=== PATIENT | female | born 1935 | race African-American/Black ===

== ENCOUNTER 2017-10-21 18:38 | Inpatient (IN) | payer MEDICAID, MEDICARE ==
[~2017-10-21] VITALS: Ht 157.5 cm; Wt 65.3 kg
[2017-10-21] MEDS ORDERED: Sodium Chloride 500ML 500 ML IV ONE (18:43)
[2017-10-21 18:52] VITALS: BP 183/69
[2017-10-21] MEDS ORDERED: UNOBMED (19:11)
--- NOTE | 2017-10-21 19:37 | Emergency Room Report ---
History of Present Illness General Chief Complaint: Altered Mental Status Source: Patient, Family Member, EMS Present Illness HPI Patient was brought in by paramedics for change in mental status Patient was found to be hypoglycemic After given dextrose her symptoms did improve Family reports that this happened several days ago as well Patient herself does have some underlying mild confusion family provide further input No reports of vomiting or diarrhea no reports of chest pain recently Family is unclear of why the patient's sugar has been going low Patient is on insulin for her diabetes Allergies: Coded Allergies: No Known Allergies (Unverified , 10/21/17) Patient History Limited by: medical condition Past Medical History: see triage record Pertinent Family History: unable to obtain Reviewed Nursing Documentation: PMH: Agreed, PSxH: Agreed Nursing Documentation-PMH Hx Hypertension: Yes Hx Diabetes: Yes Review of Systems All Other Systems: negative except mentioned in HPI Physical Exam Vital Signs Date Time Temp Pulse Resp B/P (MAP) Pulse Ox O2 Delivery O2 Flow Rate FiO2 10/21/17 18:28 97.0 64 16 200/91 98 Room Air Sp02 EP Interpretation: reviewed, normal General Appearance: well appearing, no apparent distress Head: normocephalic, atraumatic Eyes: bilateral eye PERRL, bilateral eye EOMI ENT: hearing grossly normal, normal pharynx, TMs + canals normal, uvula midline Neck: full range of motion, supple, no meningismus, no bony tend Respiratory: lungs clear, normal breath sounds, no rhonchi, no respiratory distress, no retraction, no accessory muscle use Cardiovascular #1: normal peripheral pulses, regular rate, rhythm, no edema, no gallop, no JVD, no murmur Gastrointestinal: normal bowel sounds, non tender, soft, no mass, no organomegaly, non-distended, no guarding, no hernia, no pulsatile mass, no rebound Genitourinary: no CVA tenderness Musculoskeletal: normal inspection, back normal Neurologic: responsive, 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, motor strength/tone normal, sensory intact, other - GCS 14 with mild confusion Psychiatric: mood/affect normal Skin: normal color, no rash, warm/dry, palpation normal Lymphatic: normal inspection, no adenopathy Medical Decision Making Diagnostic Impression: Primary Impression: Altered mental status Additional Impressions: Acute encephalopathy Hypoglycemia Elevated troponin ER Course Multiple differentials considered Patient's family also presents reports that the patient has had several episodes of hypoglycemia They report no change in medications The son is asking for help stating that he needs refills of Medications Patient is also hypertensive Initially was mildly nauseated denies any chest pain or shortness of breath denies any back or flank pain Patient's mentation has significantly improved after receiving dextrose Blood work Shows elevated portal and troponin, EKG does not show any changes patient amended for further inpatient care Labs Test 10/21/17 19:15 10/21/17 20:15 10/22/17 05:35 10/23/17 06:30 White Blood Count 11.6 K/UL (4.8-10.8) 10.9 K/UL (4.8-10.8) Red Blood Count 4.42 M/UL (4.20-5.40) 4.18 M/UL (4.20-5.40) Hemoglobin 12.2 G/DL (12.0-16.0) 11.3 G/DL (12.0-16.0) Hematocrit 38.5 % (37.0-47.0) 36.2 % (37.0-47.0) Mean Corpuscular Volume 87 FL (80-99) 87 FL (80-99) Mean Corpuscular Hemoglobin 27.5 PG (27.0-31.0) 27.0 PG (27.0-31.0) Mean Corpuscular Hemoglobin Concent 31.6 G/DL (32.0-36.0) 31.2 G/DL (32.0-36.0) Red Cell Distribution Width 13.7 % (11.6-14.8) 13.7 % (11.6-14.8) Platelet Count 264 K/UL (150-450) 251 K/UL (150-450) Mean Platelet Volume 8.1 FL (6.5-10.1) 8.4 FL (6.5-10.1) Neutrophils (%) (Auto) 81.8 % (45.0-75.0) 58.4 % (45.0-75.0) Lymphocytes (%) (Auto) 11.7 % (20.0-45.0) 30.8 % (20.0-45.0) Monocytes (%) (Auto) 4.8 % (1.0-10.0) 8.0 % (1.0-10.0) Eosinophils (%) (Auto) 0.6 % (0.0-3.0) 1.7 % (0.0-3.0) Basophils (%) (Auto) 1.0 % (0.0-2.0) 1.1 % (0.0-2.0) Sodium Level 132 MMOL/L (136-145) Potassium Level 3.6 MMOL/L (3.5-5.1) Chloride Level 96 MMOL/L (98-107) Carbon Dioxide Level 24 MMOL/L (21-32) Anion Gap 12 mmol/L (5-15) Blood Urea Nitrogen 20 mg/dL (7-18) Creatinine 0.8 MG/DL (0.55-1.30) Estimat Glomerular Filtration Rate mL/min (>60) Glucose Level 111 MG/DL (74-106) Calcium Level 9.0 MG/DL (8.5-10.1) Total Bilirubin 0.4 MG/DL (0.2-1.0) Aspartate Amino Transf (AST/SGOT) 14 U/L (15-37) Alanine Aminotransferase (ALT/SGPT) 12 U/L (12-78) Alkaline Phosphatase 66 U/L (46-116) Total Creatine Kinase 83 U/L (26-308) Creatine Kinase MB 1.3 NG/ML (0.0-3.6) Creatine Kinase MB Relative Index 1.5 Troponin I 0.070 ng/mL (0.000-0.056) 0.102 ng/mL (0.000-0.056) Total Protein 8.5 G/DL (6.4-8.2) Albumin 4.0 G/DL (3.4-5.0) Globulin 4.5 g/dL Albumin/Globulin Ratio 0.9 (1.0-2.7) Lipase 112 U/L (73-393) Urine Color Pale yellow Urine Appearance Clear Urine pH 7 (4.5-8.0) Urine Specific [place] 1.005 (1.005-1.035) Urine Protein 3+ (NEGATIVE) Urine Glucose (UA) 2+ (NEGATIVE) Urine Ketones Negative (NEGATIVE) Urine Occult Blood Negative (NEGATIVE) Urine Nitrite Negative (NEGATIVE) Urine Bilirubin Negative (NEGATIVE) Urine Urobilinogen Normal MG/DL (0.0-1.0) Urine Leukocyte Esterase Negative (NEGATIVE) Urine RBC 0-2 /HPF (0 - 2) Urine WBC 2-4 /HPF (0 - 2) Urine Squamous Epithelial Cells Few /LPF (NONE/OCC) Urine Amorphous Sediment Few /LPF (NONE) Urine Bacteria Few /HPF (NONE) Prothrombin Time 10.2 SEC (9.30-11.50) Prothromb Time International Ratio 1.0 (0.9-1.1) Activated Partial Thromboplast Time 26 SEC (23-33) C-Reactive Protein, Quantitative < 0.4 mg/dL (0.00-0.90) Triglycerides Level 146 MG/DL (30-150) Cholesterol Level 227 MG/DL (< 200) LDL Cholesterol 160 mg/dL (<100) HDL Cholesterol 39 MG/DL (40-60) Cholesterol/HDL Ratio 5.8 (3.3-4.4) Thyroid Stimulating Hormone (TSH) 1.507 uiU/mL (0.358-3.740) EKG Diagnostic Results Rate: normal Rhythm: NSR ST Segments: no acute changes Rhythm Strip Diag. Results EP Interpretation: yes Rate: 88 Rhythm: NSR, no PVC's, no ectopy Chest X-Ray Diagnostic Results Chest X-Ray Diagnostic Results : Chest X-Ray Ordered: Yes # of Views/Limited/Complete: 1 View Indication: Chest Pain EP Interpretation: Yes Interpretation: no consolidation, no effusion, no pneumothorax, other - Borderline cardiomegaly, mild congestion Impression: No acute disease Electronically Signed by: Frances Quintero DO Last Vital Signs Date Time Temp Pulse Resp B/P (MAP) Pulse Ox O2 Delivery O2 Flow Rate FiO2 10/21/17 18:52 97.0 16 183/69 98 Room Air 10/21/17 18:28 64 Status: improved Disposition: ADMITTED INPATIENT Condition: Serious FRANCES QUINTERO D.O. Oct 21, 2017 19:36
[2017-10-21 19:47] LABS: EOSINOPHILS % (AUTO) 0.6 % (0.0-3.0); HEMATOCRIT 38.5 % (37.0-47.0); HEMOGLOBIN 12.2 G/DL (12.0-16.0); LYMPHOCYTES % (AUTO) 11.7 % (20.0-45.0); MEAN CORPUSCULAR VOLUME 87 FL (80-99); MONOCYTES % (AUTO) 4.8 % (1.0-10.0); NEUTROPHILS % (AUTO) 81.8 % (45.0-75.0); PLATELET COUNT 264 K/UL (150-450); RED BLOOD COUNT 4.42 M/UL (4.20-5.40); RED CELL DISTRIBUTION WIDTH 13.7 % (11.6-14.8); WHITE BLOOD COUNT 11.6 K/UL (4.8-10.8)
[2017-10-21 19:53] LABS: ANION GAP 12 mmol/L (5-15); BLOOD UREA NITROGEN 20 mg/dL (7-18); CARBON DIOXIDE 24 MMOL/L (21-32); CHLORIDE 96 MMOL/L (98-107); CREATININE 0.8 MG/DL (0.55-1.30); POTASSIUM 3.6 MMOL/L (3.5-5.1); SODIUM 132 MMOL/L (136-145)
[2017-10-21 20:07] LABS: ALANINE AMINOTRANSFERASE 12 U/L (12-78); ALBUMIN/GLOBULIN RATIO 0.9 (1.0-2.7); ALKALINE PHOSPHATASE 66 U/L (46-116); ASPARTATE AMINO TRANSFERASE 14 U/L (15-37); BILIRUBIN,TOTAL 0.4 MG/DL (0.2-1.0); CKMB 1.3 NG/ML (0.0-3.6); CREATINE KINASE 83 U/L (26-308)
[2017-10-21] MEDS ORDERED: LANTUS SOL100 UNIT/1 SUBQ (20:10)
[2017-10-21] MEDS ORDERED: FERROUS SULFAT325 MG ORAL (20:10)
[2017-10-21] MEDS ORDERED: HUMALOG100 UNIT/1 SUBQ (20:10)
[2017-10-21] MEDS ORDERED: TRAZODONE HCL50 MG ORAL (20:10)
[2017-10-21] MEDS ORDERED: HYDRALAZINE HC100 MG ORAL (20:10)
[2017-10-21] MEDS ORDERED: DONEPEZIL HCL10 MG ORAL (20:10)
[2017-10-21] MEDS ORDERED: ACETAMINOPHEN325 M1 ORAL (20:10)
[2017-10-21] MEDS ORDERED: NAMENDA10 MG ORAL (20:10)
[2017-10-21] MEDS ORDERED: METOPROLOL TART50 M1 ORAL (20:10)
[2017-10-21 20:54] LABS: APPEARANCE,URINE CLEAR; BILIRUBIN, URINE NEGATIVE (NEGATIVE); COLOR,URINE PALE YELLOW; GLUCOSE, URINE (UA) 2+ (NEGATIVE); KETONES,URINE NEGATIVE (NEGATIVE); LEUKOCYTE ESTERASE ,URINE NEGATIVE (NEGATIVE); NITRITE,URINE NEGATIVE (NEGATIVE); PH,URINE 7 (4.5-8.0); PROTEIN,URINE 3+ (NEGATIVE); UROBILINOGEN,URINE NORMAL MG/DL (0.0-1.0)
[2017-10-21] MEDS ORDERED: Albuterol/Ipratropium 3ml neb HHN PRN (21:45)
[2017-10-21] MEDS ORDERED: Nitroglycerin Subl 0.4mg tab SL PRN (21:45)
[2017-10-21] MEDS ORDERED: dilTIAZem HCl 25mg/5ml Inj IV PRN (21:45)
[2017-10-21] MEDS ORDERED: Miralax 17gm pkt ORAL PRN (21:45)
[2017-10-21] MEDS ORDERED: Ketorolac 30mg Inj IV PRN (21:45)
[2017-10-21] MEDS ORDERED: Morphine Sulfate 2mg/ml Inj IVP PRN (21:45)
[2017-10-21] MEDS ORDERED: Enalaprilat 2.5mg/2ml Inj IV PRN (21:45)
[2017-10-21 22:00] VITALS: BP 160/83
[2017-10-21 22:20] VITALS: BP 147/85
[2017-10-21 22:58] VITALS: BP 160/83
[2017-10-21] MEDS: Heparin 5000 units/ml inj SUBQ SCH (23:05)
[2017-10-22] VITALS: BP 128/65
[2017-10-22 04:00] VITALS: BP 128/54
[2017-10-22] MEDS: NovoLOG Insulin Flexpen SUBQ SCH ×4 (06:30→20:46)
[2017-10-22] MEDS: Heparin 5000 units/ml inj SUBQ SCH ×3 (07:01→21:21)
[2017-10-22 07:53] LABS: BASOPHILS % (AUTO) 1.1 % (0.0-2.0); EOSINOPHILS % (AUTO) 1.7 % (0.0-3.0); HEMATOCRIT 36.2 % (37.0-47.0); HEMOGLOBIN 11.3 G/DL (12.0-16.0); LYMPHOCYTES % (AUTO) 30.8 % (20.0-45.0); MEAN CORPUSCULAR VOLUME 87 FL (80-99); NEUTROPHILS % (AUTO) 58.4 % (45.0-75.0); PLATELET COUNT 251 K/UL (150-450); RED BLOOD COUNT 4.18 M/UL (4.20-5.40); RED CELL DISTRIBUTION WIDTH 13.7 % (11.6-14.8); WHITE BLOOD COUNT 10.9 K/UL (4.8-10.8)
[2017-10-22 08:00] VITALS: BP 137/70
[2017-10-22 08:45] LABS: CHOLESTEROL 227 MG/DL (< 200); HDL CHOLESTEROL 39 MG/DL (40-60); TRIGLYCERIDES 146 MG/DL (30-150)
[2017-10-22] MEDS: Metoprolol Tartrate 50mg tab ORAL SCH ×2 (09:03→20:44)
[2017-10-22] MEDS: Aspirin Baby 81mg ORAL SCH (09:03)
--- NOTE | 2017-10-22 09:41 | Cardiac Electrophysiology PN ---
Subjective Subjective [id number]. Dictated and DW RN Rising troponin Accelerated HT Uncontrolled DM S/P RBKA and L AKA Objective Last 24 Hour Vital Signs Date Time Temp Pulse Resp B/P (MAP) Pulse Ox O2 Delivery O2 Flow Rate FiO2 10/22/17 09:03 78 137/70 10/22/17 04:00 98.2 64 18 128/54 96 Room Air 10/22/17 04:00 62 10/22/17 00:00 60 10/22/17 00:00 97.9 62 20 128/65 97 Room Air 10/21/17 22:59 97.0 16 210/90 98 Room Air 10/21/17 22:25 66 10/21/17 22:20 97.0 68 18 147/85 98 Room Air 10/21/17 22:00 97.0 89 16 160/83 98 Room Air 10/21/17 21:16 210/90 10/21/17 18:52 97.0 16 183/69 98 Room Air 10/21/17 18:28 97.0 64 16 200/91 98 Room Air Intake and Output 10/21/17 10/22/17 19:00 07:00 Intake Total 0 ml 50 ml Balance 0 ml 50 ml Intake Oral 0 ml 50 ml # Voids 1 Laboratory Tests Test 10/21/17 19:15 10/21/17 20:15 10/22/17 05:35 White Blood Count 11.6 K/UL (4.8-10.8) H 10.9 K/UL (4.8-10.8) H Red Blood Count 4.42 M/UL (4.20-5.40) 4.18 M/UL (4.20-5.40) L Hemoglobin 12.2 G/DL (12.0-16.0) 11.3 G/DL (12.0-16.0) L Hematocrit 38.5 % (37.0-47.0) 36.2 % (37.0-47.0) L Mean Corpuscular Volume 87 FL (80-99) 87 FL (80-99) Mean Corpuscular Hemoglobin 27.5 PG (27.0-31.0) 27.0 PG (27.0-31.0) Mean Corpuscular Hemoglobin Concent 31.6 G/DL (32.0-36.0) L 31.2 G/DL (32.0-36.0) L Red Cell Distribution Width 13.7 % (11.6-14.8) 13.7 % (11.6-14.8) Platelet Count 264 K/UL (150-450) 251 K/UL (150-450) Mean Platelet Volume 8.1 FL (6.5-10.1) 8.4 FL (6.5-10.1) Neutrophils (%) (Auto) 81.8 % (45.0-75.0) H 58.4 % (45.0-75.0) Lymphocytes (%) (Auto) 11.7 % (20.0-45.0) L 30.8 % (20.0-45.0) Monocytes (%) (Auto) 4.8 % (1.0-10.0) 8.0 % (1.0-10.0) Eosinophils (%) (Auto) 0.6 % (0.0-3.0) 1.7 % (0.0-3.0) Basophils (%) (Auto) 1.0 % (0.0-2.0) 1.1 % (0.0-2.0) Sodium Level 132 MMOL/L (136-145) L Potassium Level 3.6 MMOL/L (3.5-5.1) Chloride Level 96 MMOL/L (98-107) L Carbon Dioxide Level 24 MMOL/L (21-32) Anion Gap 12 mmol/L (5-15) Blood Urea Nitrogen 20 mg/dL (7-18) H Creatinine 0.8 MG/DL (0.55-1.30) Estimat Glomerular Filtration Rate mL/min (>60) Glucose Level 111 MG/DL (74-106) H Calcium Level 9.0 MG/DL (8.5-10.1) Total Bilirubin 0.4 MG/DL (0.2-1.0) Aspartate Amino Transf (AST/SGOT) 14 U/L (15-37) L Alanine Aminotransferase (ALT/SGPT) 12 U/L (12-78) Alkaline Phosphatase 66 U/L (46-116) Total Creatine Kinase 83 U/L (26-308) Creatine Kinase MB 1.3 NG/ML (0.0-3.6) Creatine Kinase MB Relative Index 1.5 Troponin I 0.070 ng/mL (0.000-0.056) 0.102 ng/mL (0.000-0.056) Total Protein 8.5 G/DL (6.4-8.2) H Albumin 4.0 G/DL (3.4-5.0) Globulin 4.5 g/dL Albumin/Globulin Ratio 0.9 (1.0-2.7) L Lipase 112 U/L (73-393) Urine Color Pale yellow Urine Appearance Clear Urine pH 7 (4.5-8.0) Urine Specific [place] 1.005 (1.005-1.035) Urine Protein 3+ (NEGATIVE) H Urine Glucose (UA) 2+ (NEGATIVE) H Urine Ketones Negative (NEGATIVE) Urine Occult Blood Negative (NEGATIVE) Urine Nitrite Negative (NEGATIVE) Urine Bilirubin Negative (NEGATIVE) Urine Urobilinogen Normal MG/DL (0.0-1.0) Urine Leukocyte Esterase Negative (NEGATIVE) Urine RBC 0-2 /HPF (0 - 2) Urine WBC 2-4 /HPF (0 - 2) Urine Squamous Epithelial Cells Few /LPF (NONE/OCC) Urine Amorphous Sediment Few /LPF (NONE) H Urine Bacteria Few /HPF (NONE) Prothrombin Time 10.2 SEC (9.30-11.50) Prothromb Time International Ratio 1.0 (0.9-1.1) Activated Partial Thromboplast Time 26 SEC (23-33) C-Reactive Protein, Quantitative < 0.4 mg/dL (0.00-0.90) Triglycerides Level 146 MG/DL (30-150) Cholesterol Level 227 MG/DL (< 200) H LDL Cholesterol 160 mg/dL (<100) H HDL Cholesterol 39 MG/DL (40-60) L Cholesterol/HDL Ratio 5.8 (3.3-4.4) H Thyroid Stimulating Hormone (TSH) 1.507 uiU/mL (0.358-3.740) MARIA GUADALUPE RODRIGUEZ Oct 22, 2017 09:41
--- NOTE | 2017-10-22 11:32 | Consultation ---
History of Present Illness General Date patient seen: Oct 22, 2017 Chief Complaint: Altered Mental Status Present Illness HPI 81 year old female with hx of HTN, CHF, CAD, Demenita, DMon insulin was brought in by paramedics for change in mental status Patient was found to be hypoglycemic. After given dextrose her symptoms did improve Family reports that this happened several days ago as well. Her troponin was high in ER as well. She is admitted to telemetry for hypoglycemia and increased troponin. Allergies: Coded Allergies: No Known Allergies (Unverified , 10/21/17) Medication History Scheduled Donepezil Hcl* (Donepezil Hcl*), 10 MG ORAL BEDTIME, (Reported) Ferrous Sulfate* (Ferrous Sulfate*), 325 MG ORAL BID, (Reported) Hydralazine Hcl* (Hydralazine Hcl*), 100 MG ORAL BID, (Reported) Insulin Glargine (Lantus), 25 UNITS SUBQ BEDTIME, (Reported) Memantine Hcl* (Namenda*), 10 MG ORAL BEDTIME, (Reported) Metoprolol Tartrate* (Metoprolol Tartrate*), 50 MG ORAL EVERY 12 HOURS, ( Reported) Trazodone Hcl* (Desyrel*), 50 MG ORAL BEDTIME, (Reported) Scheduled PRN Acetaminophen* (Acetaminophen 325MG Tablet*), 325 MG ORAL Q4H PRN for For Pain, (Reported) Miscellaneous Medications Insulin Lispro (Humalog), 0 SUBQ, (Reported) Patient History Healthcare decision maker Resuscitation status Full Code Advanced Directive on File Past Medical/Surgical History Past Medical/Surgical History: (1) Diabetes mellitus (2) CHF (congestive heart failure) (3) Dementia Review of Systems Constitutional: Reports: no symptoms Eye: Reports: no symptoms All Other Systems: negative except mentioned in HPI ROS Narrative confused, asymptomatic, knows only her name Physical Exam General Appearance: WD/WN, mild distress Lines, tubes and drains: PICC HEENT: normocephalic, atraumatic Neck: normal alignment, supple Respiratory/Chest: chest wall non-tender, lungs clear Cardiovascular/Chest: normal peripheral pulses, normal rate Abdomen: normal bowel sounds, non tender Genitourinary/Rectal: normal genital exam Extremities: normal range of motion Last 24 Hour Vital Signs Date Time Temp Pulse Resp B/P (MAP) Pulse Ox O2 Delivery O2 Flow Rate FiO2 2/7/18 09:03 78 137/70 10/22/17 08:00 76 10/22/17 08:00 98.6 78 18 137/70 95 Room Air 10/22/17 04:00 98.2 64 18 128/54 96 Room Air 10/22/17 04:00 62 10/22/17 00:00 60 10/22/17 00:00 97.9 62 20 128/65 97 Room Air 10/21/17 22:59 97.0 16 210/90 98 Room Air 10/21/17 22:25 66 10/21/17 22:20 97.0 68 18 147/85 98 Room Air 10/21/17 22:00 97.0 89 16 160/83 98 Room Air 10/21/17 21:16 210/90 10/21/17 18:52 97.0 16 183/69 98 Room Air 10/21/17 18:28 97.0 64 16 200/91 98 Room Air Intake and Output 10/21/17 10/22/17 19:00 07:00 Intake Total 0 ml 50 ml Balance 0 ml 50 ml Intake Oral 0 ml 50 ml # Voids 1 Laboratory Tests Test 10/21/17 19:15 10/21/17 20:15 10/22/17 05:35 White Blood Count 11.6 K/UL (4.8-10.8) H 10.9 K/UL (4.8-10.8) H Red Blood Count 4.42 M/UL (4.20-5.40) 4.18 M/UL (4.20-5.40) L Hemoglobin 12.2 G/DL (12.0-16.0) 11.3 G/DL (12.0-16.0) L Hematocrit 38.5 % (37.0-47.0) 36.2 % (37.0-47.0) L Mean Corpuscular Volume 87 FL (80-99) 87 FL (80-99) Mean Corpuscular Hemoglobin 27.5 PG (27.0-31.0) 27.0 PG (27.0-31.0) Mean Corpuscular Hemoglobin Concent 31.6 G/DL (32.0-36.0) L 31.2 G/DL (32.0-36.0) L Red Cell Distribution Width 13.7 % (11.6-14.8) 13.7 % (11.6-14.8) Platelet Count 264 K/UL (150-450) 251 K/UL (150-450) Mean Platelet Volume 8.1 FL (6.5-10.1) 8.4 FL (6.5-10.1) Neutrophils (%) (Auto) 81.8 % (45.0-75.0) H 58.4 % (45.0-75.0) Lymphocytes (%) (Auto) 11.7 % (20.0-45.0) L 30.8 % (20.0-45.0) Monocytes (%) (Auto) 4.8 % (1.0-10.0) 8.0 % (1.0-10.0) Eosinophils (%) (Auto) 0.6 % (0.0-3.0) 1.7 % (0.0-3.0) Basophils (%) (Auto) 1.0 % (0.0-2.0) 1.1 % (0.0-2.0) Sodium Level 132 MMOL/L (136-145) L Potassium Level 3.6 MMOL/L (3.5-5.1) Chloride Level 96 MMOL/L (98-107) L Carbon Dioxide Level 24 MMOL/L (21-32) Anion Gap 12 mmol/L (5-15) Blood Urea Nitrogen 20 mg/dL (7-18) H Creatinine 0.8 MG/DL (0.55-1.30) Estimat Glomerular Filtration Rate mL/min (>60) Glucose Level 111 MG/DL (74-106) H Calcium Level 9.0 MG/DL (8.5-10.1) Total Bilirubin 0.4 MG/DL (0.2-1.0) Aspartate Amino Transf (AST/SGOT) 14 U/L (15-37) L Alanine Aminotransferase (ALT/SGPT) 12 U/L (12-78) Alkaline Phosphatase 66 U/L (46-116) Total Creatine Kinase 83 U/L (26-308) Creatine Kinase MB 1.3 NG/ML (0.0-3.6) Creatine Kinase MB Relative Index 1.5 Troponin I 0.070 ng/mL (0.000-0.056) 0.102 ng/mL (0.000-0.056) Total Protein 8.5 G/DL (6.4-8.2) H Albumin 4.0 G/DL (3.4-5.0) Globulin 4.5 g/dL Albumin/Globulin Ratio 0.9 (1.0-2.7) L Lipase 112 U/L (73-393) Urine Color Pale yellow Urine Appearance Clear Urine pH 7 (4.5-8.0) Urine Specific [place] 1.005 (1.005-1.035) Urine Protein 3+ (NEGATIVE) H Urine Glucose (UA) 2+ (NEGATIVE) H Urine Ketones Negative (NEGATIVE) Urine Occult Blood Negative (NEGATIVE) Urine Nitrite Negative (NEGATIVE) Urine Bilirubin Negative (NEGATIVE) Urine Urobilinogen Normal MG/DL (0.0-1.0) Urine Leukocyte Esterase Negative (NEGATIVE) Urine RBC 0-2 /HPF (0 - 2) Urine WBC 2-4 /HPF (0 - 2) Urine Squamous Epithelial Cells Few /LPF (NONE/OCC) Urine Amorphous Sediment Few /LPF (NONE) H Urine Bacteria Few /HPF (NONE) Prothrombin Time 10.2 SEC (9.30-11.50) Prothromb Time International Ratio 1.0 (0.9-1.1) Activated Partial Thromboplast Time 26 SEC (23-33) C-Reactive Protein, Quantitative < 0.4 mg/dL (0.00-0.90) Triglycerides Level 146 MG/DL (30-150) Cholesterol Level 227 MG/DL (< 200) H LDL Cholesterol 160 mg/dL (<100) H HDL Cholesterol 39 MG/DL (40-60) L Cholesterol/HDL Ratio 5.8 (3.3-4.4) H Thyroid Stimulating Hormone (TSH) 1.507 uiU/mL (0.358-3.740) Height (Feet): 5 Height (Inches): 2.00 Weight (Pounds): 144 Medications Current Medications Medications (Trade) Dose Ordered Sig/[place] Route PRN Reason Start Time Stop Time Status Last Admin Dose Admin Acetaminophen (Tylenol) 650 mg Q4H PRN ORAL FEVER (temp>100.5F) 10/21/17 21:45 11/20/17 21:44 Albuterol/ Ipratropium (Albuterol/ Ipratropium) 3 ml Q4H PRN HHN Shortness of Breath 10/21/17 21:45 10/26/17 21:44 Aspirin (ASA) 162 mg DAILY ORAL 10/22/17 09:00 11/21/17 08:59 10/22/17 09:03 Atorvastatin Calcium (Lipitor) 20 mg BEDTIME ORAL 10/22/17 21:00 11/21/17 20:59 Dextrose (Dextrose 50%) STAT PRN IV Hypoglycemia 10/21/17 21:45 11/20/17 21:44 Diltiazem HCl (Cardizem) 10 mg EVERY HOUR PRN IV heart rate more than 120, 10/21/17 21:45 11/20/17 21:44 Donepezil HCl (Aricept) 10 mg BEDTIME ORAL 10/22/17 21:00 11/21/17 20:59 Enalaprilat (Vasotec) 2.5 mg EVERY 6 HOURS PRN IV sbp more than 160 10/21/17 21:45 11/20/17 21:44 Heparin Sodium (Porcine) (Heparin 5000 units/ml) 5,000 units EVERY 8 HOURS SUBQ 10/21/17 22:00 11/20/17 21:59 10/22/17 07:01 Insulin Aspart (NovoLOG) BEFORE MEALS AND HS SUBQ 10/22/17 06:30 11/21/17 06:29 Ketorolac Tromethamine (Toradol 30mg) 30 mg Q6H PRN IV moderate pain ( 4-6) 10/21/17 21:45 10/26/17 21:44 Lisinopril (Zestril) 10 mg DAILY ORAL 10/23/17 09:00 11/22/17 08:59 Memantine (Namenda) 10 mg BEDTIME ORAL 10/22/17 21:00 11/21/17 20:59 Metoprolol Tartrate (Lopressor) 50 mg EVERY 12 HOURS ORAL 10/22/17 09:00 11/21/17 08:59 10/22/17 09:03 Morphine Sulfate (Morphine Sulfate) 2 mg Q4H PRN IVP severe Pain (Pain Scale 7-10) 10/21/17 21:45 10/28/17 21:44 Nitroglycerin (Ntg) 0.4 mg Q5M PRN SL Prn Chest Pain 10/21/17 21:45 11/20/17 21:44 Ondansetron HCl (Zofran) 4 mg Q6H PRN IVP Nausea & Vomiting 10/21/17 21:45 11/20/17 21:44 Pantoprazole (Protonix) 40 mg DAILY ORAL 10/22/17 09:00 11/21/17 08:59 10/22/17 09:03 Polyethylene Glycol (Miralax) 17 gm DAILYPRN PRN ORAL Constipation 10/21/17 21:45 11/20/17 21:44 Temazepam (Restoril) 15 mg HSPRN PRN ORAL Insomnia 10/21/17 21:45 10/28/17 21:44 10/21/17 23:29 Trazodone HCl (Desyrel) 50 mg BEDTIME ORAL 10/22/17 21:00 11/21/17 20:59 Assessment/Plan Problem List: (1) Acute encephalopathy ICD Codes: G93.40 - Encephalopathy, unspecified SNOMED: 0608605 (2) Non-ST elevation (NSTEMI) myocardial infarction ICD Codes: I21.4 - Non-ST elevation (NSTEMI) myocardial infarction SNOMED: 228639840 (3) Dementia ICD Codes: F03.90 - Unspecified dementia without behavioral disturbance SNOMED: 35313204 (4) Diabetes mellitus ICD Codes: E11.9 - Type 2 diabetes mellitus without complications SNOMED: 36223523 Assessment/Plan sliding scale f/u troponin symptomatic treatment Endo evaluation titrate fio2 to sat of 92% pt/ot social service manager for home safety RADHA LONDON Oct 22, 2017 11:31
--- NOTE | 2017-10-22 11:53 | Diagnostic Imaging Report ---
Indication: Chest pain Technique: One view of the chest Comparison: none Findings: There is borderline generalized interstitial prominence. No focal airspace consolidation. The heart is mildly enlarged. Aorta is tortuous ectatic and calcified. The bones are unremarkable Impression: Borderline interstitial prominence, could be chronic or indicate minimal interstitial edema Mild cardiomegaly
[2017-10-22 12:00] VITALS: BP 125/67
--- NOTE | 2017-10-22 15:19 | Cardiology Report ---
APPROVED REPORT EXAM: Two-dimensional and M-mode echocardiogram with Doppler and color Doppler. INDICATION Coronary Artery Disease M-Mode DIMENSIONS IVSd1.8 (0.7-1.1cm)Left Atrium (MM)2.7 (1.6-4.0cm) LVDd3.4 (3.5-5.6cm)Aortic Root3.1 (2.0-3.7cm) PWd1.7 (0.7-1.1cm)Aortic Cusp Exc.1.8 (1.5-2.0cm) LVDs3.6 (2.5-4.0cm) PWs1.9 cm Technically difficult study due to poor parasternal acoustical windows. Study quality precludes accurate assessment of regional wall motion Normal left ventricular chamber size, systolic function and wall motion. Left ventricular ejection fraction estimated to be 60 %. Mild left ventricular hypertrophy. No evidence of pericardial effusion. Mild left atrial enlargement by 2D. Right cardiac chamber sizes are within normal limits. Mild focal aortic valve sclerosis with adequate cusp excursion. Mildly thickened mitral valve leaflets with normal excursion. Mild mitral annulus and aortic root calcification. Pulmonic valve not well visualized. Normal tricuspid valve structure. IVC dilated at 2.2 cm with physiological collapse. A color flow and spectral Doppler study was performed and revealed: Trace aortic insufficiency. No mitral regurgitation. Mitral diastolic velocities suggest mild left ventricular diastolic dysfunction (Grade I). Trace tricuspid regurgitation. Tricuspid systolic velocities suggests peak right ventricular systolic pressure of 17 mmHg. No pulmonic regurgitation present.
[2017-10-22 16:00] VITALS: BP 147/76
--- NOTE | 2017-10-22 16:30 | Consultation ---
DATE OF CONSULTATION: 10/22/2017 CARDIOLOGY CONSULTATION CONSULTING PHYSICIAN: Mark Hdez M.D. REFERRING PHYSICIAN: Reymundo Rivera D.O. REASON FOR CONSULTATION: Accelerated hypertension and bradycardia. HISTORY OF PRESENT ILLNESS: The patient is an 81-year-old lady with history of hypertension and diabetes as well as history of right jjape-ukp-prny amputation and left trlju-xry-qysz amputation, who was brought in by paramedics for altered mental status. The patient was found to be hypoglycemic and received dextrose that improved her symptoms. The family reported that this happened also several days earlier. The blood pressure was also as high as 200/91 in the emergency room as well as bradycardia with heart rate in the 50s. REVIEW OF SYSTEMS: Review of systems was performed and was negative other than what was mentioned in the history of present illness. PAST MEDICAL HISTORY: 1. Hypertension. 2. Diabetes. 3. Peripheral vascular disease, status post right swqdl-gat-rfoj amputation and left above-knee amputation. FAMILY HISTORY: Noncontributory. SOCIAL HISTORY: Denies smoking or drinking alcohol. PHYSICAL EXAMINATION: VITAL SIGNS: Blood pressure was as high as 210/90, currently is 137/70; pulse is 78; respirations 18; and she is afebrile. HEAD AND NECK: Shows no JVD. LUNGS: Clear. CARDIOVASCULAR: Regular S1 and S2 with no gallop or murmur. ABDOMEN: Soft. EXTREMITIES: There is no pitting edema. Status post right fwqqp-eul-acna amputation and left above-knee amputation. LABORATORY DATA: White count of 10.9, hemoglobin 11.2, hematocrit 36.2, and platelet count of 251. Sodium 132, potassium 3.6, BUN of 20, creatinine of 0.8, and glucose 111. Her troponin is 0.07 and then increased to 0.102. LDL is 160 and HDL is 39. ASSESSMENT AND PLAN: 1. Elevated troponin. The patient does not have any chest pain, however, she is diabetic. Her EKG showed sinus bradycardia and poor R-wave progression, anterior in lead III and V3. We will completely rule out myocardial infarction protocol, repeat EKG and echocardiogram. I will start the patient on aspirin, but hold off on beta-peyton in view of bradycardia. She is already on aspirin and metoprolol 50 mg b.i.d. I will start her medical regimen and await the echocardiogram results. 2. Accelerated hypertension. The patient already on metoprolol 50 mg b.i.d. I will add lisinopril 10 mg p.o. b.i.d., especially in view of the patient's diabetes. The patient is already on p.r.n. IV Vasotec. 3. Uncontrolled diabetes and altered mental status with hypoglycemia. 4. Dementia, on Aricept and Namenda. 5. 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 Thank you very much, Dr. Rivera, for allowing me to participate in the care of this patient. Please do not hesitate to contact me if you have any questions regarding my evaluation. Mark Hdez M.D. DR: GUSTAVO JOB#: [id number] CC:
--- NOTE | 2017-10-22 17:12 | Cardiology Report ---
APPROVED REPORT EKG Measurement Heart [id number] ID [id number] Sinus bradycardia Cannot rule out Anterior infarct, age undetermined Abnormal ECG
--- NOTE | 2017-10-22 17:14 | Cardiology Report ---
APPROVED REPORT EKG Measurement Heart [id number] Sinus bradycardia Otherwise normal ECG
[2017-10-22 20:00] VITALS: BP 143/70
--- NOTE | 2017-10-22 20:01 | History and Physical Report ---
DATE OF ADMISSION: 10/21/2017 TIME: 1 p.m. CONSULTANTS: 1. Jacqueline Ford M.D. 2. Dameon Leon M.D. 3. Mark Hdez M.D. CHIEF COMPLAINT: Diabetes, hypoglycemia and elevated troponin. BRIEF HISTORY: The patient is an 81-year-old female, who lives at home with son presents to [facility] last night, history of increased blood sugar, slightly weak, diagnosed with diabetes with low blood sugar and also elevated troponin and admitted to telemetry for further care. Currently, calm in bed. No complaint. No chest pain. No chest pain. No nausea, vomiting or diarrhea. PAST MEDICAL HISTORY: Diabetes, weakness and hypertension. PAST SURGICAL HISTORY: Right BKA and left AKA. MEDICATIONS: Zestril, Aricept, Namenda, , Lipitor, Lopressor, aspirin, Protonix, NovoLog, albuterol, nitroglycerin, Tylenol, Toradol, morphine, Zofran, MiraLAX, Restoril, Vasotec and Cardizem. ALLERGIES: Denies. SOCIAL HISTORY: No smoking. No alcohol. No intravenous drug abuse. FAMILY HISTORY: Noncontributory. PHYSICAL EXAMINATION: GENERAL: Calm in bed, oriented x2, in no acute distress. VITAL SIGNS: Temperature is 97 degrees, pulse 65, respirations 18, and blood pressure 125/67. CARDIOVASCULAR: No murmur. LUNGS: Distant and clear. ABDOMEN: Bowel sounds positive. Nontender and nondistended. EXTREMITIES: No cyanosis, clubbing or edema. NEUROLOGIC: The patient moves all extremities slightly weak. LABORATORY AND DIAGNOSTIC DATA: White count 27.9, hemoglobin and hematocrit 11/36 and platelets 251. BMP shows sodium 132, chloride 96, BUN 28 and glucose 111. AST 14. Troponin 0.07. Albumin 4.0. INR is 1.0 and PTT is 26. Urinalysis, 2+ glucose. ASSESSMENT: 1. Diabetes. 2. Hypoglycemia. 3. Elevated troponins. 4. Encephalopathy. 5. Weakness. 6. Hypertension. 7. Congestive heart failure. 8. . 9. Anemia. PLAN: 1. OT/PT. 2. Diet evaluation. 3. Troponin q.8 h. x3. 4. EKG in the morning. 5. Cardiology followup. 6. Blood sugar control. 7. Blood pressure control. 8. Resume home medications. 9. Dr. Ford, Dr. Leon and Dr. Hdez to consult. Reymundo Rivera D.O. DR: SAÚL JOB#: [id number] CC:
[2017-10-22] MEDS ORDERED: Donepezil 10mg tab ORAL SCH (21:00)
[2017-10-22] MEDS ORDERED: Memantine 10mg tab ORAL SCH (21:00)
[2017-10-22] MEDS ORDERED: TraZODone 50mg tab ORAL SCH (21:00)
[2017-10-22] MEDS ORDERED: Atorvastatin 20mg tab ORAL SCH (21:00)
[2017-10-23] VITALS: BP 159/99
--- NOTE | 2017-10-23 00:47 | Consultation ---
DATE OF CONSULTATION: 10/22/2017 ENDOCRINOLOGY CONSULTATION CONSULTING PHYSICIAN: Dameon Leon M.D. REFERRING PHYSICIAN: Reymundo Rivera D.O. REASON FOR CONSULTATION: Diabetes management and hypoglycemia. HISTORY OF PRESENT ILLNESS: The patient is an 81-year-old female, with history of type 2 diabetes, on insulin therapy as an outpatient, was brought to the hospital with hypoglycemia, altered mental status, accelerated hypertension, and bradycardia. The patient was admitted to telemetry bed to rule out acute coronary syndrome. Endocrinology was consulted in order to assist in the management of diabetes. PAST MEDICAL HISTORY: 1. Hypertension. 2. Type 2 diabetes. 3. Peripheral vascular disease. 4. 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 MEDICATIONS: Home medications, 1. Lantus 25 units at bedtime. 2. Humalog 5-25 units before each meal. 3. Tylenol. 4. Aricept. 5. Ferrous sulfate. 6. Hydralazine. 7. Namenda. 8. Metoprolol. 9. Trazodone. SOCIAL HISTORY: No smoking, alcohol, or drug use. FAMILY HISTORY: Noncontributory. PHYSICAL EXAMINATION: VITAL SIGNS: Blood pressure on presentation 210/90, currently is 130/70, heart rate is 78, respiratory rate 18, and the patient is afebrile. HEENT: Pupils are equal and reactive to light. Sclerae are anicteric. NECK: No JVD. HEART: Regular. LUNGS: Clear. ABDOMEN: Positive bowel sounds. Soft. EXTREMITIES: Right below-knee amputation and left above-knee amputation. LABORATORY DATA: Sodium 132, potassium 3.6, chloride 96, bicarbonate 24, BUN 20, creatinine 0.8, and glucose of 111. TSH of 1.07. WBC 10.9, hemoglobin 11.2, hematocrit 36.2, and platelets of 251. DIAGNOSES: 1. Diabetes, out of control. 2. Hypoglycemia. 3. Accelerated hypertension. PLAN: 1. Hold basal bolus insulin. 2. Continue NovoLog sliding scale insulin. 3. Resume basal and bolus insulin, Levemir and NovoLog at a lower dose once the blood glucose starts to rise. I will follow the patient closely during the hospital stay. Thank you, Dr. Rivera, for the courtesy of this consultation. Dameon Leon M.D. DR: SARWAT JOB#: [id number] CC: ROBI
[2017-10-23 04:00] VITALS: BP 107/51
[2017-10-23] MEDS: NovoLOG Insulin Flexpen SUBQ SCH ×4 (06:30→22:43)
[2017-10-23] MEDS: Heparin 5000 units/ml inj SUBQ SCH ×3 (06:53→22:42)
[2017-10-23 07:45] LABS: BASOPHILS % (AUTO) 1.4 % (0.0-2.0); EOSINOPHILS % (AUTO) 2.5 % (0.0-3.0); HEMATOCRIT 35.8 % (37.0-47.0); HEMOGLOBIN 11.4 G/DL (12.0-16.0); LYMPHOCYTES % (AUTO) 45.7 % (20.0-45.0); MEAN CORPUSCULAR VOLUME 87 FL (80-99); MONOCYTES % (AUTO) 5.9 % (1.0-10.0); NEUTROPHILS % (AUTO) 44.5 % (45.0-75.0); PLATELET COUNT 239 K/UL (150-450); RED BLOOD COUNT 4.11 M/UL (4.20-5.40); RED CELL DISTRIBUTION WIDTH 13.6 % (11.6-14.8); WHITE BLOOD COUNT 9.3 K/UL (4.8-10.8)
[2017-10-23 08:00] VITALS: BP 129/75
[2017-10-23 08:11] LABS: ANION GAP 8 mmol/L (5-15); BLOOD UREA NITROGEN 31 mg/dL (7-18); CARBON DIOXIDE 26 MMOL/L (21-32); CHLORIDE 104 MMOL/L (98-107); CREATININE 1.2 MG/DL (0.55-1.30); POTASSIUM 4.6 MMOL/L (3.5-5.1); SODIUM 138 MMOL/L (136-145)
[2017-10-23] MEDS ORDERED: Lisinopril 10mg tab ORAL SCH ×2 (09:00→21:00)
[2017-10-23] MEDS: Aspirin Baby 81mg ORAL SCH (09:04)
[2017-10-23] MEDS: Metoprolol Tartrate 50mg tab ORAL SCH ×2 (09:05→22:03)
--- NOTE | 2017-10-23 10:28 | Cardiac Electrophysiology PN ---
Assessment/Plan Assessment/Plan 1. Elevated troponin. Levels are flat 0.07, 0.1 and 0.08. The patient does not have any chest pain, however, she is diabetic. Her EKG showed sinus bradycardia and poor R-wave progression, Repeat EKG no change and echocardiogram Ef 60%. Continue aspirin and metoprolol 50 mg b.i.d. No chest pain. 2. Accelerated hypertension. The patient already on metoprolol 50 mg b.i.d.and increase lisinopril to 10 mg p.o. b.i.d. p.r.n. IV Vasotec. 3. Uncontrolled diabetes and altered mental status with hypoglycemia. 4. Dementia, on Aricept and Namenda. 5. 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 DW RN Subjective Subjective Feeling better. No chest pain or SOB. Objective Last 24 Hour Vital Signs Date Time Temp Pulse Resp B/P (MAP) Pulse Ox O2 Delivery O2 Flow Rate FiO2 10/23/17 09:05 129/75 10/23/17 09:05 60 129/75 10/23/17 08:00 55 10/23/17 08:00 96.8 60 21 129/75 99 Room Air 10/23/17 04:00 98.0 55 20 107/51 95 Room Air 10/23/17 04:00 56 10/23/17 00:00 97.9 56 20 159/99 97 Room Air 10/23/17 00:00 55 10/22/17 20:44 62 147/76 10/22/17 20:00 98.2 66 20 143/70 95 Room Air 10/22/17 20:00 66 10/22/17 16:00 62 10/22/17 16:00 98.1 61 20 147/76 99 Room Air 10/22/17 12:00 97.2 65 18 125/67 97 Room Air 10/22/17 12:00 64 Intake and Output 10/22/17 10/23/17 19:00 07:00 Intake Total 1220 ml Balance 1220 ml Intake Oral 1220 ml # Voids 1 2 Laboratory Tests Test 10/23/17 06:30 White Blood Count 9.3 K/UL (4.8-10.8) Red Blood Count 4.11 M/UL (4.20-5.40) L Hemoglobin 11.4 G/DL (12.0-16.0) L Hematocrit 35.8 % (37.0-47.0) L Mean Corpuscular Volume 87 FL (80-99) Mean Corpuscular Hemoglobin 27.7 PG (27.0-31.0) Mean Corpuscular Hemoglobin Concent 31.8 G/DL (32.0-36.0) L Red Cell Distribution Width 13.6 % (11.6-14.8) Platelet Count 239 K/UL (150-450) Mean Platelet Volume 8.5 FL (6.5-10.1) Neutrophils (%) (Auto) 44.5 % (45.0-75.0) L Lymphocytes (%) (Auto) 45.7 % (20.0-45.0) H Monocytes (%) (Auto) 5.9 % (1.0-10.0) Eosinophils (%) (Auto) 2.5 % (0.0-3.0) Basophils (%) (Auto) 1.4 % (0.0-2.0) Sodium Level 138 MMOL/L (136-145) Potassium Level 4.6 MMOL/L (3.5-5.1) Chloride Level 104 MMOL/L (98-107) Carbon Dioxide Level 26 MMOL/L (21-32) Anion Gap 8 mmol/L (5-15) Blood Urea Nitrogen 31 mg/dL (7-18) H Creatinine 1.2 MG/DL (0.55-1.30) Estimat Glomerular Filtration Rate mL/min (>60) Glucose Level 103 MG/DL (74-106) Calcium Level 9.0 MG/DL (8.5-10.1) Troponin I 0.080 ng/mL (0.000-0.056) Pro-B-Type Natriuretic Peptide 889 pg/mL (0-125) H Objective HEAD AND NECK: Shows no JVD. LUNGS: Clear. CARDIOVASCULAR: Regular S1 and S2 with no gallop or murmur. ABDOMEN: Soft. EXTREMITIES: There is no pitting edema. Status post right [id number] amputation and left above-knee amputation. MARIA GUADALUPE RODRIGUEZ Oct 23, 2017 10:27
[2017-10-23 12:00] VITALS: BP 128/57
--- NOTE | 2017-10-23 13:55 | General Progress Note ---
Assessment/Plan Problem List: (1) ACS (acute coronary syndrome) ICD Codes: I24.9 - Acute ischemic heart disease, unspecified SNOMED: 100361205 (2) Diabetes mellitus ICD Codes: E11.9 - Type 2 diabetes mellitus without complications SNOMED: 16792807 (3) Dementia ICD Codes: F03.90 - Unspecified dementia without behavioral disturbance SNOMED: 49860301 (4) CHF (congestive heart failure) ICD Codes: I50.9 - Heart failure, unspecified SNOMED: 35790184 (5) Non-ST elevation (NSTEMI) myocardial infarction ICD Codes: I21.4 - Non-ST elevation (NSTEMI) myocardial infarction SNOMED: 076856577 (6) Hypoglycemia ICD Codes: E16.2 - Hypoglycemia, unspecified SNOMED: 749450690 (7) Altered mental status ICD Codes: R41.82 - Altered mental status, unspecified SNOMED: 516800339, 940780003, 309630709 (8) Elevated troponin ICD Codes: R74.8 - Abnormal levels of other serum enzymes SNOMED: 114641150, 787670808, 792811491 (9) Acute encephalopathy ICD Codes: G93.40 - Encephalopathy, unspecified SNOMED: 0104669 Status: unchanged Assessment/Plan ot pt diet bs bp control cbc bmp am dc plan w hh Subjective Constitutional: Reports: weakness Allergies: Coded Allergies: No Known Allergies (Unverified , 10/21/17) All Systems: reviewed and negative except above Subjective calm in bed Objective Last 24 Hour Vital Signs Date Time Temp Pulse Resp B/P (MAP) Pulse Ox O2 Delivery O2 Flow Rate FiO2 10/23/17 12:00 62 10/23/17 12:00 98.2 63 20 128/57 97 Room Air 10/23/17 09:05 129/75 10/23/17 09:05 60 129/75 10/23/17 08:00 55 10/23/17 08:00 96.8 60 21 129/75 99 Room Air 10/23/17 04:00 98.0 55 20 107/51 95 Room Air 10/23/17 04:00 56 10/23/17 00:00 97.9 56 20 159/99 97 Room Air 10/23/17 00:00 55 10/22/17 20:44 62 147/76 10/22/17 20:00 98.2 66 20 143/70 95 Room Air 10/22/17 20:00 66 10/22/17 16:00 62 10/22/17 16:00 98.1 61 20 147/76 99 Room Air Intake and Output 10/22/17 10/23/17 19:00 07:00 Intake Total 1220 ml Balance 1220 ml Intake Oral 1220 ml # Voids 1 2 Laboratory Tests 10/23/17 06:30: White Blood Count 9.3, Red Blood Count 4.11L, Hemoglobin 11.4L, Hematocrit 35.8L , Mean Corpuscular Volume 87, Mean Corpuscular Hemoglobin 27.7, Mean Corpuscular Hemoglobin Concent 31.8L, Red Cell Distribution Width 13.6, Platelet Count 239, Mean Platelet Volume 8.5, Neutrophils (%) (Auto) 44.5L, Lymphocytes (%) (Auto) 45.7H, Monocytes (%) (Auto) 5.9, Eosinophils (%) (Auto) 2.5, Basophils (%) (Auto) 1.4, Sodium Level 138, Potassium Level 4.6, Chloride Level 104, Carbon Dioxide Level 26, Anion Gap 8, Blood Urea Nitrogen 31H, Creatinine 1.2, Estimat Glomerular Filtration Rate , Glucose Level 103, Calcium Level 9.0, Troponin I 0.080H, Pro-B-Type Natriuretic Peptide 889H Height (Feet): 5 Height (Inches): 2.00 Weight (Pounds): 144 General Appearance: lethargic EENT: normal ENT inspection Neck: normal alignment Cardiovascular: normal peripheral pulses, normal rate, regular rhythm Respiratory/Chest: chest wall non-tender, lungs clear, normal breath sounds Abdomen: normal bowel sounds, non tender, soft Extremities: normal inspection Edema: no edema noted Arm (L), no edema noted Arm (R), no edema noted Leg (L), no edema noted Leg (R), no edema noted Pedal (L), no edema noted Pedal (R), no edema noted Generalized Neurologic: responsive, motor weakness Skin: normal pigmentation, warm/dry CARINA LEVINE Oct 23, 2017 13:55
--- NOTE | 2017-10-23 15:27 | Wound Care Consultation ---
Wound Assessment Wound Assessment : Wound Number: 1 Wound Present on Admission: Yes New Wound: No Status Change of Wound: No Wound Location Body Site Modif: left, right Wound Location Body Site: ischial tuberosity Wound Type: scar Janette Test: Does not Janette Wound Thickness: Full Thickness Percent of Wound [place]/Red: 100 Wound Drainage Amount: None Wound Drainage Odor: None/Absent Tissue Surrounding Wound: Intact Wound General Appearance: Asymptomatic, Reddened Wound Comment #1 Left and right ischial tuberosity with full thickness scar tissue Recommendation -Local wound car per protocol -Optimize nutrition -Offload both heels -Heel protector on both heels -Turn and reposition -Low air loss mattress -Keep clean and dry -Assess and f/u accordingly for any changes ZAK NATHAN RN Oct 23, 2017 15:27
[2017-10-23 16:00] VITALS: BP 104/78
--- NOTE | 2017-10-23 16:39 | Pulmonology Progress Note ---
Assessment/Plan Problems: (1) Acute encephalopathy (2) Non-ST elevation (NSTEMI) myocardial infarction (3) Dementia (4) Diabetes mellitus Assessment/Plan BP is better controlled all notes reviewed adjust bp meds med/surg dc planning Subjective ROS Limited/Unobtainable: No Constitutional: Reports: no symptoms HEENT: Repors: no symptoms Respiratory: Reports: no symptoms Allergies: Coded Allergies: No Known Allergies (Unverified , 10/21/17) Objective Last 24 Hour Vital Signs Date Time Temp Pulse Resp B/P (MAP) Pulse Ox O2 Delivery O2 Flow Rate FiO2 10/23/17 12:00 62 10/23/17 12:00 98.2 63 20 128/57 97 Room Air 10/23/17 09:05 129/75 10/23/17 09:05 60 129/75 10/23/17 08:00 55 10/23/17 08:00 96.8 60 21 129/75 99 Room Air 10/23/17 04:00 98.0 55 20 107/51 95 Room Air 10/23/17 04:00 56 10/23/17 00:00 97.9 56 20 159/99 97 Room Air 10/23/17 00:00 55 10/22/17 20:44 62 147/76 10/22/17 20:00 98.2 66 20 143/70 95 Room Air 10/22/17 20:00 66 Intake and Output 10/22/17 10/23/17 19:00 07:00 Intake Total 1220 ml Balance 1220 ml Intake Oral 1220 ml # Voids 1 2 Objective General Appearance: WD/WN, mil HEENT: normocephalic, atraumatic Neck: normal alignment, supple Respiratory/Chest: chest wall non-tender, lungs clear Cardiovascular/Chest: normal peripheral pulses, normal rate Abdomen: normal bowel sounds, non tender Genitourinary/Rectal: normal genital exam Extremities: normal range of motion, L AKA, R BKA Laboratory Tests 10/23/17 06:30: White Blood Count 9.3, Red Blood Count 4.11L, Hemoglobin 11.4L, Hematocrit 35.8L , Mean Corpuscular Volume 87, Mean Corpuscular Hemoglobin 27.7, Mean Corpuscular Hemoglobin Concent 31.8L, Red Cell Distribution Width 13.6, Platelet Count 239, Mean Platelet Volume 8.5, Neutrophils (%) (Auto) 44.5L, Lymphocytes (%) (Auto) 45.7H, Monocytes (%) (Auto) 5.9, Eosinophils (%) (Auto) 2.5, Basophils (%) (Auto) 1.4, Sodium Level 138, Potassium Level 4.6, Chloride Level 104, Carbon Dioxide Level 26, Anion Gap 8, Blood Urea Nitrogen 31H, Creatinine 1.2, Estimat Glomerular Filtration Rate , Glucose Level 103, Calcium Level 9.0, Troponin I 0.080H, Pro-B-Type Natriuretic Peptide 889H Current Medications Medications (Trade) Dose Ordered Sig/[place] Route PRN Reason Start Time Stop Time Status Last Admin Dose Admin Acetaminophen (Tylenol) 650 mg Q4H PRN ORAL FEVER (temp>100.5F) 10/21/17 21:45 11/20/17 21:44 Albuterol/ Ipratropium (Albuterol/ Ipratropium) 3 ml Q4H PRN HHN Shortness of Breath 10/21/17 21:45 10/26/17 21:44 Aspirin (ASA) 162 mg DAILY ORAL 10/22/17 09:00 11/21/17 08:59 10/23/17 09:04 Atorvastatin Calcium (Lipitor) 20 mg BEDTIME ORAL 10/22/17 21:00 11/21/17 20:59 10/22/17 20:43 Dextrose (Dextrose 50%) STAT PRN IV Hypoglycemia 10/21/17 21:45 11/20/17 21:44 Diltiazem HCl (Cardizem) 10 mg EVERY HOUR PRN IV heart rate more than 120, 10/21/17 21:45 11/20/17 21:44 Donepezil HCl (Aricept) 10 mg BEDTIME ORAL 10/22/17 21:00 11/21/17 20:59 10/22/17 20:43 Enalaprilat (Vasotec) 2.5 mg EVERY 6 HOURS PRN IV sbp more than 160 10/21/17 21:45 11/20/17 21:44 Heparin Sodium (Porcine) (Heparin 5000 units/ml) 5,000 units EVERY 8 HOURS SUBQ 10/21/17 22:00 11/20/17 21:59 10/23/17 14:20 Insulin Aspart (NovoLOG) BEFORE MEALS AND HS SUBQ 10/22/17 06:30 11/21/17 06:29 10/23/17 11:26 Ketorolac Tromethamine (Toradol 30mg) 30 mg Q6H PRN IV moderate pain ( 4-6) 10/21/17 21:45 10/26/17 21:44 Lisinopril (Zestril) 10 mg Q12HR ORAL 10/23/17 21:00 11/22/17 20:59 Memantine (Namenda) 10 mg BEDTIME ORAL 10/22/17 21:00 11/21/17 20:59 10/22/17 20:43 Metoprolol Tartrate (Lopressor) 50 mg EVERY 12 HOURS ORAL 10/22/17 09:00 11/21/17 08:59 10/23/17 09:05 Morphine Sulfate (Morphine Sulfate) 2 mg Q4H PRN IVP severe Pain (Pain Scale 7-10) 10/21/17 21:45 10/28/17 21:44 Nitroglycerin (Ntg) 0.4 mg Q5M PRN SL Prn Chest Pain 10/21/17 21:45 11/20/17 21:44 Ondansetron HCl (Zofran) 4 mg Q6H PRN IVP Nausea & Vomiting 10/21/17 21:45 11/20/17 21:44 Pantoprazole (Protonix) 40 mg DAILY ORAL 10/22/17 09:00 11/21/17 08:59 10/23/17 09:04 Polyethylene Glycol (Miralax) 17 gm DAILYPRN PRN ORAL Constipation 10/21/17 21:45 11/20/17 21:44 Temazepam (Restoril) 15 mg HSPRN PRN ORAL Insomnia 10/21/17 21:45 10/28/17 21:44 10/21/17 23:29 Trazodone HCl (Desyrel) 50 mg BEDTIME ORAL 10/22/17 21:00 11/21/17 20:59 10/22/17 20:43 RADHA LONDON Oct 23, 2017 16:39
[2017-10-23 20:00] VITALS: BP 111/55
[2017-10-23] MEDS ORDERED: Nitroglycerin Subl 0.4mg tab SL PRN (20:50)
[2017-10-23] MEDS ORDERED: Miralax 17gm pkt ORAL PRN (21:00)
[2017-10-23] MEDS ORDERED: Albuterol/Ipratropium 3ml neb HHN PRN (21:00)
[2017-10-23] MEDS ORDERED: TraZODone 50mg tab ORAL SCH (21:00)
[2017-10-23] MEDS ORDERED: Donepezil 10mg tab ORAL SCH (21:00)
[2017-10-23] MEDS ORDERED: Atorvastatin 20mg tab ORAL SCH (21:00)
[2017-10-23] MEDS ORDERED: Morphine Sulfate 2mg/ml Inj IVP PRN (21:00)
[2017-10-23] MEDS ORDERED: Memantine 10mg tab ORAL SCH (21:00)
[2017-10-23] MEDS ORDERED: Ketorolac 30mg Inj IV PRN (21:45)
[2017-10-23] MEDS: Lisinopril 10mg tab ORAL SCH (22:01)
[2017-10-24 00:47] VITALS: BP 114/50
[2017-10-24 04:00] VITALS: BP 96/40
[2017-10-24] MEDS: Heparin 5000 units/ml inj SUBQ SCH ×2 (06:11→14:26)
[2017-10-24] MEDS: NovoLOG Insulin Flexpen SUBQ SCH ×3 (06:11→17:17)
[2017-10-24 08:00] VITALS: BP 111/51
[2017-10-24 08:18] LABS: BASOPHILS % (AUTO) 1.5 % (0.0-2.0); EOSINOPHILS % (AUTO) 4.2 % (0.0-3.0); HEMATOCRIT 34.3 % (37.0-47.0); HEMOGLOBIN 10.8 G/DL (12.0-16.0); LYMPHOCYTES % (AUTO) 40.8 % (20.0-45.0); MEAN CORPUSCULAR VOLUME 88 FL (80-99); MONOCYTES % (AUTO) 8.7 % (1.0-10.0); NEUTROPHILS % (AUTO) 44.9 % (45.0-75.0); PLATELET COUNT 236 K/UL (150-450); RED CELL DISTRIBUTION WIDTH 13.5 % (11.6-14.8)
[2017-10-24] MEDS: Metoprolol Tartrate 50mg tab ORAL SCH (08:49)
[2017-10-24] MEDS: Lisinopril 10mg tab ORAL SCH (08:50)
[2017-10-24 08:52] LABS: ANION GAP 7 mmol/L (5-15); BLOOD UREA NITROGEN 45 mg/dL (7-18); CALCIUM 8.9 MG/DL (8.5-10.1); CARBON DIOXIDE 25 MMOL/L (21-32); CHLORIDE 105 MMOL/L (98-107); CREATININE 1.5 MG/DL (0.55-1.30); POTASSIUM 4.7 MMOL/L (3.5-5.1); SODIUM 137 MMOL/L (136-145)
[2017-10-24] MEDS ORDERED: Aspirin Baby 81mg ORAL SCH (09:00)
[2017-10-24] MEDS ORDERED: Memantine 10mg tab ORAL SCH (09:00)
[2017-10-24 12:00] VITALS: BP 100/50
--- NOTE | 2017-10-24 12:16 | Cardiac Electrophysiology PN ---
Assessment/Plan Assessment/Plan 1. Elevated troponin. Levels are flat 0.07, 0.1 and 0.08. No chest pain. Her EKG showed sinus bradycardia and poor R-wave progression, Repeat EKG no change and echocardiogram Ef 60%. Continue aspirin and metoprolol 50 mg b.i.d. 2. Accelerated hypertension. On metoprolol 50 mg b.i.d. and lisinopril 10 mg p.o. b.i.d. and p.r.n. IV Vasotec. 3. Uncontrolled diabetes and altered mental status with hypoglycemia. 4. Dementia, on Aricept and Namenda. 5. 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 DW RN Subjective Subjective More alert off tele. No chest pain or SOB. Objective Last 24 Hour Vital Signs Date Time Temp Pulse Resp B/P (MAP) Pulse Ox O2 Delivery O2 Flow Rate FiO2 10/24/17 08:50 111/51 10/24/17 08:49 58 111/51 10/24/17 08:00 97.2 58 19 111/51 97 10/24/17 06:40 58 16 Room Air 10/24/17 04:00 97.5 53 17 96/40 97 10/24/17 00:47 98.9 58 19 114/50 95 10/24/17 00:47 Room Air 10/23/17 22:03 66 111/55 10/23/17 22:01 111/55 10/23/17 20:00 98.6 66 20 111/55 97 Room Air 10/23/17 16:00 99.0 67 20 104/78 95 Room Air 10/23/17 16:00 65 Intake and Output 10/23/17 10/24/17 19:00 07:00 Intake Total 880 ml 840 ml Output Total 1150 ml Balance 880 ml -310 ml Intake Oral 880 ml 840 ml Output Urine Total 1150 ml # Voids 2 Laboratory Tests Test 10/23/17 21:36 10/24/17 07:50 Troponin I 0.074 ng/mL (0.000-0.056) White Blood Count 9.0 K/UL (4.8-10.8) Red Blood Count 3.90 M/UL (4.20-5.40) L Hemoglobin 10.8 G/DL (12.0-16.0) L Hematocrit 34.3 % (37.0-47.0) L Mean Corpuscular Volume 88 FL (80-99) Mean Corpuscular Hemoglobin 27.7 PG (27.0-31.0) Mean Corpuscular Hemoglobin Concent 31.6 G/DL (32.0-36.0) L Red Cell Distribution Width 13.5 % (11.6-14.8) Platelet Count 236 K/UL (150-450) Mean Platelet Volume 8.4 FL (6.5-10.1) Neutrophils (%) (Auto) 44.9 % (45.0-75.0) L Lymphocytes (%) (Auto) 40.8 % (20.0-45.0) Monocytes (%) (Auto) 8.7 % (1.0-10.0) Eosinophils (%) (Auto) 4.2 % (0.0-3.0) H Basophils (%) (Auto) 1.5 % (0.0-2.0) Sodium Level 137 MMOL/L (136-145) Potassium Level 4.7 MMOL/L (3.5-5.1) Chloride Level 105 MMOL/L (98-107) Carbon Dioxide Level 25 MMOL/L (21-32) Anion Gap 7 mmol/L (5-15) Blood Urea Nitrogen 45 mg/dL (7-18) H Creatinine 1.5 MG/DL (0.55-1.30) H Estimat Glomerular Filtration Rate mL/min (>60) Glucose Level 109 MG/DL (74-106) H Calcium Level 8.9 MG/DL (8.5-10.1) Objective HEAD AND NECK: Shows no JVD. LUNGS: Clear. CARDIOVASCULAR: Regular S1 and S2 with no gallop or murmur. ABDOMEN: Soft. EXTREMITIES: There is no pitting edema. Status post right [id number] amputation and left above-knee amputation. MARIA GUADALUPE RODRIGUEZ Oct 24, 2017 12:16
--- NOTE | 2017-10-24 12:19 | General Progress Note ---
Assessment/Plan Problem List: (1) ACS (acute coronary syndrome) ICD Codes: I24.9 - Acute ischemic heart disease, unspecified SNOMED: 003399897 (2) Diabetes mellitus ICD Codes: E11.9 - Type 2 diabetes mellitus without complications SNOMED: 15341758 (3) Dementia ICD Codes: F03.90 - Unspecified dementia without behavioral disturbance SNOMED: 21104430 (4) CHF (congestive heart failure) ICD Codes: I50.9 - Heart failure, unspecified SNOMED: 20407914 (5) Non-ST elevation (NSTEMI) myocardial infarction ICD Codes: I21.4 - Non-ST elevation (NSTEMI) myocardial infarction SNOMED: 762176538 (6) Hypoglycemia ICD Codes: E16.2 - Hypoglycemia, unspecified SNOMED: 600224481 (7) Altered mental status ICD Codes: R41.82 - Altered mental status, unspecified SNOMED: 324243545, 851244973, 789058246 (8) Elevated troponin ICD Codes: R74.8 - Abnormal levels of other serum enzymes SNOMED: 454787895, 769375843, 213272445 (9) Acute encephalopathy ICD Codes: G93.40 - Encephalopathy, unspecified SNOMED: 0106941 Status: stable, progressing, tolerating diet Assessment/Plan ot pt diet bs bp control cbc bmp am dc plan w hh Subjective Allergies: Coded Allergies: No Known Allergies (Unverified , 10/21/17) All Systems: reviewed and negative except above Subjective calm in bed Objective Last 24 Hour Vital Signs Date Time Temp Pulse Resp B/P (MAP) Pulse Ox O2 Delivery O2 Flow Rate FiO2 10/24/17 08:50 111/51 10/24/17 08:49 58 111/51 10/24/17 08:00 97.2 58 19 111/51 97 10/24/17 06:40 58 16 Room Air 10/24/17 04:00 97.5 53 17 96/40 97 10/24/17 00:47 98.9 58 19 114/50 95 10/24/17 00:47 Room Air 10/23/17 22:03 66 111/55 10/23/17 22:01 111/55 10/23/17 20:00 98.6 66 20 111/55 97 Room Air 10/23/17 16:00 99.0 67 20 104/78 95 Room Air 10/23/17 16:00 65 Intake and Output 10/23/17 10/24/17 19:00 07:00 Intake Total 880 ml 840 ml Output Total 1150 ml Balance 880 ml -310 ml Intake Oral 880 ml 840 ml Output Urine Total 1150 ml # Voids 2 Laboratory Tests 10/23/17 21:36: Troponin I 0.074H 10/24/17 07:50: White Blood Count 9.0, Red Blood Count 3.90L, Hemoglobin 10.8L, Hematocrit 34.3L , Mean Corpuscular Volume 88, Mean Corpuscular Hemoglobin 27.7, Mean Corpuscular Hemoglobin Concent 31.6L, Red Cell Distribution Width 13.5, Platelet Count 236, Mean Platelet Volume 8.4, Neutrophils (%) (Auto) 44.9L, Lymphocytes (%) (Auto) 40.8, Monocytes (%) (Auto) 8.7, Eosinophils (%) (Auto) 4.2H, Basophils (%) (Auto) 1.5, Sodium Level 137, Potassium Level 4.7, Chloride Level 105, Carbon Dioxide Level 25, Anion Gap 7, Blood Urea Nitrogen 45H, Creatinine 1.5H, Estimat Glomerular Filtration Rate , Glucose Level 109H, Calcium Level 8.9 Height (Feet): 5 Height (Inches): 2.00 Weight (Pounds): 144 General Appearance: lethargic EENT: normal ENT inspection Neck: normal alignment Cardiovascular: normal peripheral pulses, normal rate, regular rhythm Respiratory/Chest: chest wall non-tender, lungs clear, normal breath sounds Abdomen: normal bowel sounds, non tender, soft Extremities: normal inspection Edema: no edema noted Arm (L), no edema noted Arm (R), no edema noted Leg (L), no edema noted Leg (R), no edema noted Pedal (L), no edema noted Pedal (R), no edema noted Generalized Neurologic: motor weakness Skin: normal pigmentation, warm/dry CARINA LEVINE Oct 24, 2017 12:19
--- NOTE | 2017-10-24 15:00 | Consultation ---
DATE OF CONSULTATION: 10/24/2017 CONSULTING PHYSICIAN: Gissel Lopes M.D. HISTORY OF PRESENT ILLNESS: This is a female patient. She is 81 years old. She has encephalopathy. She has got some confusion, some disorganized thought process, and hypoglycemia, but the reason why there was a psychiatric consultation was because this patient has been exhibiting altered mental status and confusion. The cognition has declined below baseline secondary to the stress of her medical illness. Her attending physician, Dr. Reymundo Rivera has requested daily psychiatric consultation to prevent any further decline in the patient's cognition. Her son assists her at bedside. She is calm and cooperative, but she is extremely confused. She did not know what today's date was. She was not even completely sure why she was in the hospital. According to the chart, that is not her baseline. So, that is why I am working with this patient to improve her cognition overall and her memory as well. MEDICAL HISTORY: She has history of diabetes, hypertension, and generalized weakness. ALLERGIES: No known drug allergies. SUBSTANCE ABUSE HISTORY: No history of any drug or alcohol use. SOCIAL HISTORY: She lives at home with her son. She is financially supported by [employer] and Medicare as well as her family support. FAMILY PSYCHIATRIC HISTORY: Denies. STRENGTHS: She is moderately better and she has a place to live. WEAKNESSES: She is impulsive and has declining health. MENTAL STATUS EXAMINATION: This is an 81-year-old female with psychomotor retardation. Appearance is disheveled. Attitude is irritable and agitated. Affect is guarded and restricted. Intellect is poor. Mood is depressed and anxious. Motor activity, psychomotor agitation. Attention span is poor. Orientation x2. Speech is low volume and slurred. Denies any current suicidal or homicidal ideations, but insight and judgment is poor. DIAGNOSIS: Major depressive disorder with psychotic features, rule out pseudodementia, rule out dementia with psychotic features. hypoglycemia and hypertension. Psychosocial stressors, financial. PLAN: The plan for this patient is I am actually going to continue this patient on a psych med regimen consisting of trazodone 50 mg at bedtime and I am going to continue her on Aricept 10 mg at bedtime and I am also going to increase her Namenda to a dose of 10 mg twice a day to help augment the effect of her Aricept to help reduce any further decline in cognition. She will continue to be followed by Psychiatry throughout the hospital course. A 15 to 20 minutes of supportive therapy provided. I am also going to consult to see this patient for Psychology consultation. Chart is reviewed and discussed with staff. Seen and assessed at bedside. Gissel Lopes M.D. DR: SEEMA JOB#: [id number] CC:
[2017-10-24 16:00] VITALS: BP 114/57
[2017-10-24] MEDS ORDERED: ASPIRIN81 MG ORAL (16:13)
[2017-10-24] MEDS ORDERED: LIPITOR20 MG ORAL (16:14)
[2017-10-24] MEDS ORDERED: LISINOPRIL5 MG ORAL (16:14)
[2017-10-24] MEDS ORDERED: ARICEPT10 MG ORAL (16:15)
[2017-10-24] MEDS ORDERED: NAMENDA10 MG ORAL (16:16)
[2017-10-24] MEDS ORDERED: METOPROLOL SUCC50 MG ORAL (16:17)
[2017-10-24] MEDS ORDERED: PROTONIX40 MG ORAL (16:18)
[2017-10-24] MEDS ORDERED: TRAZODONE HCL50 MG ORAL (16:19)
--- NOTE | 2017-10-24 16:43 | Cardiology Report ---
APPROVED REPORT EKG Measurement Heart [id number] Normal sinus rhythm Minimal voltage criteria for LVH, may be normal variant Inferior infarct, age undetermined Possible Anterolateral infarct, age undetermined Abnormal ECG
--- NOTE | 2017-10-24 17:10 | Nephrology Progress Note ---
Assessment/Plan Problem List: (1) Acute kidney injury (2) Diabetes mellitus (3) Dementia (4) CHF (congestive heart failure) (5) Altered mental status (6) Elevated troponin (7) Acute encephalopathy (8) ACS (acute coronary syndrome) Plan Consult dictated # [id number] Subjective Constitutional: Denies: no symptoms, chills, diaphoresis, fever, malaise, weakness, other HEENT: Denies: no symptoms, eye pain, blurred vision, tearing, double vision, ear pain, ear discharge, nose pain, nose congestion, throat pain, throat swelling, mouth pain, mouth swelling, other Genitourinary: Denies: no symptoms, burning, discharge, frequency, flank pain, hematuria, incontinence, pain, urgency, other Neurologic/Psychiatric: Denies: no symptoms, anxiety, depressed, emotional problems, headache, numbness, paresthesia, pre-existing deficit, seizure, tingling, tremors, weakness, other Subjective In bed, in no apparent distress Objective Objective Last 24 Hour Vital Signs Date Time Temp Pulse Resp B/P (MAP) Pulse Ox O2 Delivery O2 Flow Rate FiO2 10/24/17 16:00 98.6 58 19 114/57 97 10/24/17 15:01 97.6 10/24/17 12:00 97.6 54 18 100/50 95 10/24/17 08:50 111/51 10/24/17 08:49 58 111/51 10/24/17 08:00 97.2 58 19 111/51 97 10/24/17 06:40 58 16 Room Air 10/24/17 04:00 97.5 53 17 96/40 97 10/24/17 00:47 98.9 58 19 114/50 95 10/24/17 00:47 Room Air 10/23/17 22:03 66 111/55 10/23/17 22:01 111/55 10/23/17 20:00 98.6 66 20 111/55 97 Room Air Intake and Output 10/23/17 10/24/17 19:00 07:00 Intake Total 880 ml 840 ml Output Total 1150 ml Balance 880 ml -310 ml Intake Oral 880 ml 840 ml Output Urine Total 1150 ml # Voids 2 Laboratory Tests 10/23/17 21:36: Troponin I 0.074H 10/24/17 07:50: White Blood Count 9.0, Red Blood Count 3.90L, Hemoglobin 10.8L, Hematocrit 34.3L , Mean Corpuscular Volume 88, Mean Corpuscular Hemoglobin 27.7, Mean Corpuscular Hemoglobin Concent 31.6L, Red Cell Distribution Width 13.5, Platelet Count 236, Mean Platelet Volume 8.4, Neutrophils (%) (Auto) 44.9L, Lymphocytes (%) (Auto) 40.8, Monocytes (%) (Auto) 8.7, Eosinophils (%) (Auto) 4.2H, Basophils (%) (Auto) 1.5, Sodium Level 137, Potassium Level 4.7, Chloride Level 105, Carbon Dioxide Level 25, Anion Gap 7, Blood Urea Nitrogen 45H, Creatinine 1.5H, Estimat Glomerular Filtration Rate , Glucose Level 109H, Calcium Level 8.9 Height (Feet): 5 Height (Inches): 2.00 Weight (Pounds): 144 General Appearance: no apparent distress, alert EENT: normal ENT inspection Neck: normal alignment Cardiovascular: bradycardia Respiratory/Chest: normal breath sounds, no respiratory distress Abdomen: soft, no organomegaly Extremities: other - Right BKA, Left AKA Andra Eckert N.P. Oct 24, 2017 17:10
[2017-10-24 20:00] VITALS: BP 139/59
[2017-10-24] MEDS ORDERED: Tubing IV Secondary IV ONE (20:14)
--- NOTE | 2017-10-24 21:45 | Consultation ---
DATE OF CONSULTATION: 10/24/2017 NEPHROLOGY CONSULTATION CONSULTING PHYSICIAN: Evin Zayas M.D. REFERRING PHYSICIAN: Reymundo Rivera D.O. REASON FOR CONSULT: Acute kidney injury. HISTORY OF PRESENT ILLNESS: The patient is an 81-year-old female with past medical history significant for diabetes, hypertension, congestive heart failure, and hyperlipidemia who presented today ED with altered mental status. According to the patient who is lying comfortably in bed at this time, she did remember where she was and the next thing she know she was in the hospital. She stated that at this time her memory is back and she does remember where she is and stated that she is waiting for her son to come in and take her home. She denies chest pain. No nausea. No vomiting. No abdominal pain. Denies any loss of consciousness. No fever. No chills. Recently, her BUN and creatinine was noted to be elevated. Therefore, we are called for this consult. PAST MEDICAL HISTORY: Significant for dementia, diabetes, hypertension and hyperlipidemia. PAST SURGICAL HISTORY: Right BKA and left AKA. MEDICATIONS: Current medications include aspirin 162 mg p.o. daily, Pantoprazole 40 mg p.o. daily, heparin sodium 5000 units subcutaneous q.8 h., acetaminophen 650 mg p.o. q.4 h. p.r.n., NovoLog insulin sliding scale, Lipitor 20 mg p.o. at bedtime, Aricept 10 mg p.o. daily at bedtime, handheld nebulizer albuterol q.4 h. p.r.n., lisinopril 10 mg q.12 h., Namenda 10 mg p.o. at bedtime, metoprolol 50 mg p.o. b.i.d., morphine sulfate 2 mg q.4 h. p.r.n. IV, Zofran 4 mg q.6 h. IV p.r.n., trazodone 50 mg p.o. at bedtime, and temazepam 15 mg p.o. p.r.n. insomnia. ALLERGIES: She has no known allergies. SOCIAL HISTORY: She lives at home with her son. Denies any smoking history, no alcohol use and no illicit drug use. REVIEW OF SYSTEMS: A full 12-point review of system was reviewed with the patient and positives as stated in history of present illness. PHYSICAL EXAMINATION: GENERAL: This is an 81-year-old elderly female, in no apparent distress. VITAL SIGNS: Blood pressure 114/57, heart rate is 58, respiratory rate is 19, temperature is 98.6 degrees, and O2 saturation is 97% on room air. HEENT: Head is normocephalic and atraumatic with moist mucous membranes. NECK: Supple. No JVD noted. LUNGS: Clear to auscultation bilaterally. No wheezing. No crackles. CARDIOVASCULAR: She is bradycardic. No murmurs, rubs, or gallops. ABDOMEN: Soft, nontender, and nondistended. Positive bowel sounds in all four quadrants. EXTREMITIES: Right BKA and left AKA noted. Stump is clean and dry and intact. NEUROLOGIC: She is awake, alert, and oriented x3 with no focal deficits. LABORATORY AND DIAGNOSTIC DATA: CBC, white count 9.0, hemoglobin 10.8, hematocrit 34.3, and platelet count of 236. BMP, sodium 137, potassium 4.7, chloride 105, bicarbonate 25, BUN 45, creatinine 1.5 and blood glucose is 109. Troponin is elevated at 0.074. ProBNP 889. Radiologic findings, chest x-ray showed impression borderline interstitial prominence, could be chronic or indicate minimal interstitial edema. Mild cardiomegaly. Echocardiogram showed a left ventricular ejection fraction estimated to be 60%, mild left ventricular hypertrophy. No evidence of pericardial effusion. ASSESSMENT: 1. Acute kidney injury. 2. Elevated troponin. 3. Congestive heart failure. 4. Dementia. 5. Diabetes. 6. Hyperlipidemia. 7. Hypertension. 8. Hypoglycemia. 9. Mild anemia. PLAN: We will renally dose medications. Avoid nephrotoxins. We will monitor electrolytes and correct p.r.n. Monitor renal function. Continue psychotropic medications. Monitor hemoglobin and hematocrit as well. Strict glycemic control. Continue daily PPI. Continue heparin subcutaneously for DVT prophylaxis. Monitor neurological status. PT/OT per protocol. We will monitor the patient's overall response to treatment and make recommendations as necessary. Thank you, Dr. Rivera, for allowing us to participate in the care of this patient. Evin Zayas M.D. Andra Eckert DR: DAVIDA JOB#: [id number] CC:
--- NOTE | 2017-10-24 23:32 | Pulmonology Progress Note ---
Assessment/Plan Problems: (1) Acute encephalopathy (2) Non-ST elevation (NSTEMI) myocardial infarction (3) Dementia (4) Diabetes mellitus Assessment/Plan BP is better controlled all notes reviewed adjust bp meds med/surg dc planning with hh today Subjective ROS Limited/Unobtainable: No Allergies: Coded Allergies: No Known Allergies (Unverified , 10/21/17) Objective Last 24 Hour Vital Signs Date Time Temp Pulse Resp B/P (MAP) Pulse Ox O2 Delivery O2 Flow Rate FiO2 10/24/17 20:00 97.1 62 18 139/59 99 Room Air 10/24/17 16:00 Room Air 10/24/17 16:00 98.6 58 19 114/57 97 10/24/17 15:01 97.6 10/24/17 12:00 97.6 54 18 100/50 95 10/24/17 12:00 Room Air 10/24/17 08:50 111/51 10/24/17 08:49 58 111/51 10/24/17 08:00 97.2 58 19 111/51 97 10/24/17 08:00 Room Air 10/24/17 06:40 58 16 Room Air 10/24/17 04:00 97.5 53 17 96/40 97 10/24/17 00:47 98.9 58 19 114/50 95 10/24/17 00:47 Room Air Intake and Output 10/23/17 10/24/17 19:00 07:00 Intake Total 880 ml 840 ml Output Total 1150 ml Balance 880 ml -310 ml Intake Oral 880 ml 840 ml Output Urine Total 1150 ml # Voids 2 Objective General Appearance: WD/WN, mil HEENT: normocephalic, atraumatic Neck: normal alignment, supple Respiratory/Chest: chest wall non-tender, lungs clear Cardiovascular/Chest: normal peripheral pulses, normal rate Abdomen: normal bowel sounds, non tender Genitourinary/Rectal: normal genital exam Extremities: normal range of motion, L AKA, R BKA Laboratory Tests 10/24/17 07:50: White Blood Count 9.0, Red Blood Count 3.90L, Hemoglobin 10.8L, Hematocrit 34.3L , Mean Corpuscular Volume 88, Mean Corpuscular Hemoglobin 27.7, Mean Corpuscular Hemoglobin Concent 31.6L, Red Cell Distribution Width 13.5, Platelet Count 236, Mean Platelet Volume 8.4, Neutrophils (%) (Auto) 44.9L, Lymphocytes (%) (Auto) 40.8, Monocytes (%) (Auto) 8.7, Eosinophils (%) (Auto) 4.2H, Basophils (%) (Auto) 1.5, Sodium Level 137, Potassium Level 4.7, Chloride Level 105, Carbon Dioxide Level 25, Anion Gap 7, Blood Urea Nitrogen 45H, Creatinine 1.5H, Estimat Glomerular Filtration Rate , Glucose Level 109H, Calcium Level 8.9 RADHA LONDON Oct 24, 2017 23:32
--- NOTE | 2017-10-27 08:16 | Discharge Summary ---
Discharge Summary Hospital Course Date of Admission Oct 21, 2017 at 20:18 Date of Discharge Oct 24, 2017 at 20:15 Admitting Diagnosis encephalopathy, hypoglycemia HPI Samra Vargas is a 81 year old female who was admitted on Oct 21, 2017 at 20:18 for Encephalopahy, Hypoglycemia Hospital Course dc summary #[id number] Discharge Medications Continued Medications: Aspirin* (Aspirin*) 81 Mg Tab.chew 162 MG ORAL DAILY, TAB Atorvastatin Calcium* (Lipitor*) 20 Mg Tablet 20 MG ORAL BEDTIME, TAB Donepezil Hcl* (Donepezil Hcl*) 10 Mg Tablet 10 MG ORAL BEDTIME Insulin Glargine (Lantus) 100 Unit/1 Ml Insuln.pen 25 UNITS SUBQ BEDTIME Insulin Lispro (Humalog) 100 Unit/1 Ml Vial 0 SUBQ INJECT SUBCUTANEOUSLY 5-25 UNITS THREE TIMES PER DAY Lisinopril (Lisinopril*) 5 Mg Tablet 10 MG ORAL Q12HR, TAB Memantine Hcl* (Namenda*) 10 Mg Tablet 10 MG ORAL BEDTIME Metoprolol Tartrate* (Metoprolol Tartrate*) 50 Mg Tablet 50 MG ORAL EVERY 12 HOURS Pantoprazole* (Protonix*) 40 Mg Tablet.dr 40 MG ORAL DAILY, TAB Trazodone Hcl* (Desyrel*) 50 Mg Tablet 50 MG ORAL BEDTIME Discharge Condition Upon Discharge: stable Discharge Disposition Patient was discharged to Home with Home Health(06) Discharge Diagnoses: Discharge Instructions Discharge Instructions Special Instructions I have been assigned to complete a D/C Summary on this account. I was not involved in the patient management Rebecca Bunn NP (Vanchtein) Oct 27, 2017 08:16
--- NOTE | 2017-10-27 23:45 | Discharge Summary 2 SIG ---
DATE OF ADMISSION: 10/21/2017 DATE OF DISCHARGE: 10/24/2017 REASON FOR ADMISSION: 81-year-old female with a past medical history of hypertension, diabetes, CHF, coronary artery disease, bilateral amputee, and PVD, was brought by paramedics for change in mental status. The patient was found to be hypoglycemic. After given dextrose, her symptoms improved. The patient had underlying dementia. The patient was found to have an elevated blood pressure- 200/91. Chest x-ray showed borderline interstitial prominence. Troponin was elevated - 0.07. Mild leukocytosis-11.6. Urinalysis negative for UTI, but showed +3 protein and +2 glucose. TSH within normal limits. The patient was admitted for further management with diagnosis of acute encephalopathy secondary to hypoglycemia, elevated troponin, and hypertensive urgency. HOSPITAL COURSE: The patient admitted. Cardiology consult was requested. Serial troponin were monitored. The patient was on telemetry floor. According to wholesale account executive, the levels were flat- 0.07, 0.1, and 0.08. No cardiac complaints. No chest pain. EKG showed sinus bradycardia and poor RV progression. Repeated EKG showed no change. Echocardiogram revealed preserved ejection fraction of 60% and right ventricular systolic pressure of 17. The patient was on medical management with aspirin and beta-peyton. Blood pressure was managed with beta-peyton and ANNA inhibitor and remained stable after implementing this antihypertensive regimen. [employer] Chemistry Teacher closely followed. [employer] Chemistry Teacher optimized anti-glycemic medication regimen. The patient was on the ANNA inhibitor beneficial for diabetes. Supplemental oxygen provided as needed to keep pulse oximetry above 92%. Prior to discharge, pulse oximetry was stable on room air. Psychiatrist seen and evaluated the patient, diagnosed the patient with major depressive disorder with psychotic features. Psychiatric medication regimen was optimized. The patient with evidence of acute kidney injury. Finance Director followed. Recommended to avoid nephrotoxics. Renal parameters and electrolytes were closely monitored. All medications were renally dosed. The patient to follow up with primary medical doctor for close monitoring of renal parameters. The patient has evidence of mild anemia. Hemoglobin and hematocrit were closely monitored, remained on the baseline, monitor as outpatient. The patient was working with physical and occupational therapists. Bowel regimen instituted. DVT prophylaxis provided. Home medications were resumed. The patient was stable for discharge home with home health services. FINAL DIAGNOSES: 1. Acute encephalopathy secondary to hypoglycemia, resolved. 2. Elevated troponin. 3. Possible non-ST elevation myocardial infarction. 4. Hypertensive urgency. 5. Acute kidney injury. 6. Dementia. 7. Major depressive disorder with psychotic features. 8. Anemia. DISCHARGE MEDICATIONS: See medication reconciliation list. DISCHARGE INSTRUCTIONS: The patient was discharged home with home health services. Follow up with the primary care provider next week. Reymundo Rivera D.O. I have been assigned to dictate discharge summary on this account and I was not involved in the patient's management. Rebecca SilverEl[facility] Centerhu N.P. DR: Leslee JOB#: [id number] CC: ROBI
--- NOTE | 2017-10-28 13:16 | Diagnostic Imaging Report ---
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 Large collateral vein noted anterior to the superficial femoral artery. Remainder of the deep venous system within normal limits. LEFT LEG: Venous imaging reveals a patent deep venous system. There is no evidence of thrombus within the common femoral, and superficial femoral veins. The greater saphenous vein is also within normal limits. Doppler indicates normal spontaneous flow within these segments. There is no evidence of acute deep vein thrombosis.
== END 2017-10-24 20:15 | disposition home health service (06) | DRG 420 ==
LOC: EDBD 18:38 → EMR 19:11 → 2E 20:18 → EDBEDREQSVC 20:32 → EDBEDREQTM 20:32 → EDBEDREQ 20:52 → 3E 10-23 20:30
DX: E11.649 Type 2 diabetes mellitus with hypoglycemia without coma (principal); I21.4 Non-ST elevation (NSTEMI) myocardial infarction; G93.40 Encephalopathy, unspecified; N17.9 Acute kidney failure, unspecified; I50.9 Heart failure, unspecified; F03.90 Unspecified dementia, unspecified severity, without behavioral disturbance, psychotic disturbance, mood disturbance, and anxiety; Z89.511 Acquired absence of right leg below knee; Z89.612 Acquired absence of left leg above knee; I16.0 Hypertensive urgency; F32.3 Major depressive disorder, single episode, severe with psychotic features; D64.9 Anemia, unspecified; I11.0 Hypertensive heart disease with heart failure; Z79.4 Long term (current) use of insulin; I25.10 Atherosclerotic heart disease of native coronary artery without angina pectoris; I73.9 Peripheral vascular disease, unspecified; R00.1 Bradycardia, unspecified; E78.5 Hyperlipidemia, unspecified
CPT/HCPCS: 36415; 71045; 80048; 80053; 80061; 81003; 82550; 82553; 82962; 83690; 83880; 84443; 84484; 85025; 85610; 85730; 86140; 93005; 93306; 93970; 94664; 97803; 99285; J1815

== ENCOUNTER 2018-12-05 16:32 | Emergency (ER) | payer MEDICARE, MEDICAID ==
[~2018-12-05] VITALS: Ht 165.1 cm; Wt 80.7 kg
[~2018-12-05 16:32] MED LIST: ACETAMINOPHEN325 M1 ORAL; ARICEPT10 MG ORAL; ASPIRIN81 MG ORAL; DONEPEZIL HCL10 MG ORAL; FERROUS SULFAT325 MG ORAL; HUMALOG100 UNIT/1 SUBQ; HYDRALAZINE HC100 MG ORAL; LANTUS SOL100 UNIT/1 SUBQ; LIPITOR20 MG ORAL; LISINOPRIL5 MG ORAL; METOPROLOL SUCC50 MG ORAL; METOPROLOL TART50 M1 ORAL; NAMENDA10 MG ORAL; PROTONIX40 MG ORAL; TRAZODONE HCL50 MG ORAL; UNOBMED
[2018-12-05 16:48] VITALS: BP 179/87
--- NOTE | 2018-12-05 16:58 | NUR ---
ED Nurse Note: Pt came in for medication refill of her metoprolol, namenda and hydralazine. Per family memebr pt has not been taking her medications for 2 weeks. Upcoming appt will be on 12/15/2018. Pt is asymptomatic.
[2018-12-05] MEDS ORDERED: HYDRALAZINE HC100 MG ORAL (17:11)
[2018-12-05] MEDS ORDERED: ARICEPT10 MG ORAL (17:11)
[2018-12-05] MEDS ORDERED: METOPROLOL TART50 M1 ORAL (17:11)
[2018-12-05] MEDS ORDERED: NAMENDA10 MG ORAL (17:11)
[2018-12-05 17:16] VITALS: BP 162/84
--- NOTE | 2018-12-05 17:16 | NUR ---
ER Nurse Note: Pt seen, treated, medically cleared for discharge by ERMD. Discharge instructions and prescriptions given with repeat verbalizaion by pt/family member. Instructed pt to follow up with primary care phyiscian within one week. Pt a&ox4, VSS, no signs of distress. ID band removed. Left with all belongings, left via wheelchair left with own transportation.
--- NOTE | 2018-12-05 18:04 | Emergency Room Report ---
History of Present Illness General Chief Complaint: General Complaint Source: Patient, Medical Record Present Illness HPI 82-year-old female presents ED for evaluation. Patient is here for medication refill. Daughter at bedside states that patient has been unable to fill her medications for the last 2 weeks. Unable to reach PMD office to get refills. Is requesting refill of her metoprolol, Aricept, hydralazine and memantine. Patient has history of hypertension and dementia. Denies chest pain or shortness of breath. Denies any dizziness. Daughter states patient is at her baseline mentation. Has no complaints. No other aggravating relieving factors. Denies any other associated symptoms Allergies: Coded Allergies: No Known Allergies (Unverified , 10/21/17) Patient History Past Medical History: DM, HTN, dementia Past Surgical History: none Pertinent Family History: none Social History: Denies: smoking, alcohol use, drug use Now: No Immunizations: UTD Reviewed Nursing Documentation: PMH: Agreed; PSxH: Agreed Nursing Documentation-PMH Hx Cardiac Problems: Yes Hx Hypertension: Yes Hx Diabetes: Yes History Of Psychiatric Problem: Yes - alhimerizer Hx Neurological Problems: No Review of Systems All Other Systems: negative except mentioned in HPI Physical Exam Vital Signs Date Time Temp Pulse Resp B/P (MAP) Pulse Ox O2 Delivery O2 Flow Rate FiO2 12/05/18 16:48 99.0 15 179/87 94 Room Air 12/05/18 16:48 61 Sp02 EP Interpretation: reviewed, normal General Appearance: no apparent distress, alert, GCS 15, non-toxic Head: normocephalic, atraumatic Eyes: bilateral eye normal inspection, bilateral eye PERRL ENT: hearing grossly normal, normal pharynx, no angioedema, normal voice Neck: full range of motion, supple/symm/no masses Respiratory: chest non-tender, lungs clear, normal breath sounds, speaking full sentences Cardiovascular #1: regular rate, rhythm, no edema Cardiovascular #2: 2+ carotid (R), 2+ carotid (L), 2+ radial (R), 2+ radial (L) , 2+ dorsalis pedis (R), 2+ dorsalis pedis (L) Gastrointestinal: normal bowel sounds, non tender, soft, non-distended, no guarding, no rebound Rectal: deferred Genitourinary: normal inspection, no CVA tenderness Musculoskeletal: back normal, gait/station normal, normal range of motion, non- tender Neurologic: alert, oriented x3, responsive, motor strength/tone normal, sensory intact, speech normal Psychiatric: judgement/insight normal, memory normal, mood/affect normal, no suicidal/homicidal ideation Reflexes: 3+ bicep (R), 3+ bicep (L), 3+ tricep (R), 3+ tricep (L), 3+ knee (R) , 3+ knee (L) Skin: normal color, no rash, warm/dry, well hydrated Lymphatic: no adenopathy Medical Decision Making Diagnostic Impression: Primary Impression: Medication refill ER Course 82-year-old female presents to ED refill of her medication. hospital course: After initial history and physical, is requesting refills of her metoprolol, Aricept, hydralazine and memantine I reviewed EMR and there is documentation of these medications for the patient. I will provide 1 month refill of these medications. Patient and daughter states she will follow-up with PMD next week. safe for discharge close outpatient follow-up Diagnosis-encounter for medication refill Stable and discharged to home with prescription for metoprolol, aricept, hydralazine, memantine. Followup with PMD. Return to ED if symptoms recur or worsen Last Vital Signs Date Time Temp Pulse Resp B/P (MAP) Pulse Ox O2 Delivery O2 Flow Rate FiO2 12/05/18 17:16 98.9 85 18 162/84 96 Room Air Status: improved Disposition: HOME, SELF-CARE Condition: Stable Scripts Donepezil Hcl* (ARICEPT*) 10 Mg Tablet 10 MG ORAL QHS for 30 Days, TAB Prov: Joe Palacio MD 12/05/18 Memantine Hcl* (NAMENDA*) 10 Mg Tablet 10 MG ORAL BEDTIME for 30 Days, TAB Prov: Joe Palacio MD 12/05/18 Metoprolol Tartrate* (METOPROLOL TARTRATE*) 50 Mg Tablet 50 MG ORAL EVERY 12 HOURS for 30 Days, TAB Prov: Joe Palacio MD 12/05/18 Hydralazine Hcl* (HYDRALAZINE HCL*) 100 Mg Tablet 100 MG ORAL BID for 30 Days, TAB Prov: Joe Palacio MD 12/05/18 Patient Instructions: Medicine Refill at the Emergency Department Joe Palacio MD Dec 05, 2018 18:04
== END 2018-12-05 17:16 | disposition home or self-care (01) ==
LOC: EMR 17:00
DX: I10 Essential (primary) hypertension (principal); E11.9 Type 2 diabetes mellitus without complications; G30.9 Alzheimer's disease, unspecified; F02.80 Dementia in other diseases classified elsewhere, unspecified severity, without behavioral disturbance, psychotic disturbance, mood disturbance, and anxiety; Z76.0 Encounter for issue of repeat prescription
CPT/HCPCS: 99283